=== PATIENT | female | born 1960 | race African-American/Black ===

== ENCOUNTER 2017-08-29 23:54 | Emergency (ER) | payer BC, OTHER ==
[~2017-08-29] VITALS: Ht 165.1 cm; Wt 57.6 kg
[~2017-08-29 23:54] MED LIST: Z.0.NO CURRENT MEDS
[2017-08-30 00:02] VITALS: BP 175/102; PULSE 78; RESP 16; TEMP 98.9; O2SAT 100
[2017-08-30] MEDS ORDERED: MULTTAB67 PO (00:11)
[2017-08-30] MEDS ORDERED: CHOL5000 PO (00:11)
[2017-08-30] MEDS ORDERED: CLON0.1T PO (00:11)
[2017-08-30 00:35] VITALS: BP 178/84; PULSE 88; RESP 16; O2SAT 99
--- NOTE | 2017-08-30 00:39 | PD ---
HPI Chief Complaint: Numbness/Tingling Time Seen by Provider: 00:35 Travel History International Travel<30 days: No Contact w/Intl Traveler<30days: No Traveled to known affect area: No History of Present Illness HPI The patient is a 57-year-old right-hand dominant female that was at her computer and fell asleep at around 940. She woke up around 10 PM. When she fell asleep her right wrist was extended. The patient felt numbness and weakness of the right hand when she woke up. She denies any other numbness or weakness. She denies any trauma. [facility]LY [facility] Past Medical History : 1 : 1 Social History Alcohol Use: No Tobacco Use: No Substance Use: No Allergies-Medications (Allergen,Severity, Reaction): Coded Allergies: loratadine (Unverified Allergy, Mild, 05/14/17) Reported Meds & Prescriptions Reported Meds & Active Scripts Active Reported Vitamin D3 (Cholecalciferol) 5,000 Unit Cap 5,000 Units PO DAILY Multiple Vitamin 1 Tab 1 Tab PO DAILY Clonidine (Clonidine HCl) 0.1 Mg Tab 0.1 Mg PO BID PRN Review of Systems Except as stated in HPI: all other systems reviewed are Neg Physical Exam Narrative GENERAL: The patient is alert, oriented 3 in no apparent distress. Her vital signs show blood pressure 175/102, repeat is 178/84. SKIN: Focused skin assessment warm/dry. HEAD: Atraumatic. Normocephalic. EYES: Pupils equal and round. No scleral icterus. No injection or drainage. ENT: No nasal bleeding or discharge. Mucous membranes pink and moist. NECK: Trachea midline. No JVD. CARDIOVASCULAR: Regular rate and rhythm. No murmur appreciated. RESPIRATORY: No accessory muscle use. Clear to auscultation. Breath sounds equal bilaterally. GASTROINTESTINAL: Abdomen soft, non-tender, nondistended. Hepatic and splenic margins not palpable. MUSCULOSKELETAL: No obvious deformities. No clubbing. No cyanosis. No edema. NEUROLOGICAL: Awake and alert. No obvious cranial nerve deficits. Motor grossly within normal limits. Normal speech. Examination of the right hand shows no tenderness of the ulnar nerve at the elbow. Tinel and Phalen sign appear negative. There is decreased strength on the muscles of the hand innervated by the median and, in particular, the ulnar nerve. There is also decreased pinprick sensation over the ulnar area. PSYCHIATRIC: Appropriate mood and affect; insight and judgment normal. Data Data Last Documented VS Vital Signs Date Time Temp Pulse Resp B/P (MAP) Pulse Ox O2 Delivery O2 Flow Rate FiO2 08/30/17 00:18 78 16 100 08/30/17 00:02 98.9 175/102 (126) [facility] Medical Decision Making Medical Screen Exam Complete: Yes Emergency Medical Condition: Yes Medical Record Reviewed: Yes Differential Diagnosis Neurapraxia ulnar/median nerve, neurotemesis ulnar/median nerve, axonotemesis all her/median nerve, CVA Narrative Course The patient appears to have neurapraxia the ulnar/median nerve. Her physical description does not appear to be a CVA. 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 You should notice improvement when you wake up this morning but given several days for complete improvement. If not better by Saturday you should see a neurologist. Disposition: 01 DISCHARGE HOME Condition: Stable Ezequiel Loomis MD Aug 30, 2017 00:39
== END 2017-08-30 01:00 | disposition home or self-care (01) ==
LOC: PHED 23:54
DX: S54.01XA Injury of ulnar nerve at forearm level, right arm, initial encounter (principal); S54.11XA Injury of median nerve at forearm level, right arm, initial encounter; X58.XXXA Exposure to other specified factors, initial encounter; Y93.84 Activity, sleeping
CPT/HCPCS: 99281; L3908